=== PATIENT | male | born 1990 | race African-American/Black ===

== ENCOUNTER 2017-06-10 15:14 | Observation (INO) | payer SELFPAY ==
[~2017-06-10] VITALS: Ht 180.3 cm; Wt 64.0 kg
[~2017-06-10 15:14] MED LIST: AMOX600S PO; HYDR7.5S PO
[2017-06-10 15:17] VITALS: BP 143/85; PULSE 67; RESP 18; TEMP 99.3; O2SAT 98
[2017-06-10] MEDS ORDERED: SODIUM CHLOR 0.9% 1000 ML INJ 1,000 ML IV SCH (15:34)
[2017-06-10] MEDS ORDERED: ONDANSETRON HCL 4 MG/2 ML VIAL ONE (15:34)
[2017-06-10] MEDS ORDERED: SODIUM CHLORIDE 0.9% FLUSH 10 ML FLUSH IV FLUSH PRN ×2 (15:45→18:30)
[2017-06-10] MEDS ORDERED: ONDANSETRON HCL 4 MG/2 ML VIAL IVP ONE (15:45)
[2017-06-10] MEDS ORDERED: SODIUM CHLOR 0.9% 1000 ML INJ 1,000 ML IV ONE (15:45)
--- NOTE | 2017-06-10 15:47 | PD ---
HPI Chief Complaint: GI Complaint Time Seen by Provider: 15:24 Travel History International Travel<30 days: No Contact w/Intl Traveler<30days: No Traveled to known affect area: No History of Present Illness HPI Patient is a 26-year-old male who presents the emergency room with complaints of nausea and vomiting. Patient reports that he has not been feeling well since Saturday, reports that he has been feeling nauseous and has been having episodes of vomiting with abdominal cramping. Patient was seen at an outside hospital yesterday and had a full work including a CT of the abdomen and pelvis. Patient reports that he was told that he had a "little infection" to his abdomen and was started on antibiotics. Patient was unsure which antibiotics he was started on, reports that he took a dose today at work and ended up throwing it up. Patient reports that he is not feeling any better, reports that he is still feeling very sick and is unable to keep anything down. Patient denies any recent travels, denies any sick contacts. Reports increased diffuse abdominal cramping. PFSH Past Medical History Asthma: No Autoimmune Disease: No Blood Disorders: No Anxiety: No Depression: No Heart Rhythm Problems: No Cardiovascular Problems: No Chest Pain: No Cystic Fibrosis: No Diminished Hearing: No GERD: Yes Genitourinary: No Headaches: No Hypertension: No Musculoskeletal: No Neurologic: No Psychiatric: Yes (psych evaluation 2002 hx ) Reproductive: No Respiratory: No Seizures: No Sickle Cell Disease: No Sleep Apnea: No ?: Not Past Surgical History Ear Surgery: No Eye Surgery: No Oral Surgery: No Other Surgery: Yes Social History Alcohol Use: Yes (OCC) Tobacco Use: No Substance Use: Yes (MARIJUANA) Allergies-Medications (Allergen,Severity, Reaction): Coded Allergies: No Known Allergies (Verified , 01/26/15) Reported Meds & Prescriptions Reported Meds & Active Scripts Active No Active Prescriptions or Reported Medications Review of Systems General / Constitutional: No: Fever, Chills Eyes: No: Visual changes HENT: No: Headaches Cardiovascular: No: Chest Pain or Discomfort Respiratory: No: Shortness of Breath Gastrointestinal: Positive: Nausea, Vomiting, Abdominal Pain, No: Diarrhea, Constipation Genitourinary: No: Dysuria Musculoskeletal: No: Pain Skin: No Rash Neurologic: No: Weakness Psychiatric: No: Depression Endocrine: No: Polydipsia Hematologic/Lymphatic: No: Easy Bruising Physical Exam Narrative GENERAL: moderate distress SKIN: Focused skin assessment warm/dry. HEAD: Atraumatic. Normocephalic. EYES: Pupils equal and round. No scleral icterus. No injection or drainage. ENT: No nasal bleeding or discharge. Mucous membranes pink and moist. NECK: Trachea midline. No JVD. CARDIOVASCULAR: Regular rate and rhythm. No murmur appreciated. RESPIRATORY: No accessory muscle use. Clear to auscultation. Breath sounds equal bilaterally. GASTROINTESTINAL: Abdomen soft, non-tender, nondistended. Hepatic and splenic margins not palpable. MUSCULOSKELETAL: No obvious deformities. No clubbing. No cyanosis. No edema. NEUROLOGICAL: Awake and alert. No obvious cranial nerve deficits. Motor grossly within normal limits. Normal speech. PSYCHIATRIC: Appropriate mood and affect; insight and judgment normal. Data Data Last Documented VS Vital Signs Date Time Temp Pulse Resp B/P (MAP) Pulse Ox O2 Delivery O2 Flow Rate FiO2 06/10/17 17:43 60 17 152/63 (92) 97 Room Air 06/10/17 15:17 99.3 Orders Orders Ondansetron Inj (Zofran Inj) (06/10/17 15:34) Complete Blood Count With Diff (06/10/17 15:34) Comprehensive Metabolic Panel (06/10/17 15:34) Lipase (06/10/17 15:34) Prothrombin Time / Inr (Pt) (06/10/17 15:34) Act Partial Throm Time (Ptt) (06/10/17 15:34) Urinalysis - C+S If Indicated (06/10/17 15:34) Iv Access Insert/Monitor (06/10/17 15:34) Ecg Monitoring (06/10/17 15:34) Oximetry (06/10/17 15:34) NPO (06/10/17 15:34) Ondansetron Inj (Zofran Inj) (06/10/17 15:45) Sodium Chlor 0.9% 1000 Ml Inj (Ns 1000 M (06/10/17 15:34) Sodium Chloride 0.9% Flush (Ns Flush) (06/10/17 15:45) Sodium Chlor 0.9% 1000 Ml Inj (Ns 1000 M (06/10/17 15:45) Ondansetron Inj (Zofran Inj) (06/10/17 16:15) Chlorpromazine Inj (Thorazine Inj) (06/10/17 17:15) Chlorpromazine Inj (Thorazine Inj) (06/10/17 18:00) Potassium Chloride (Kcl) (06/10/17 18:15) Urine Culture (06/10/17 17:00) Potassium Chlor 20 Meq Premix (Kcl 20 Me (06/10/17 18:30) Admit Order (Ed Use Only) (06/10/17 18:31) Labs Laboratory Tests Test 06/10/17 15:40 06/10/17 15:55 06/10/17 17:00 White Blood Count 7.7 TH/MM3 Red Blood Count 4.76 MIL/MM3 Hemoglobin 15.0 GM/DL Hematocrit 46.1 % Mean Corpuscular Volume 96.8 FL Mean Corpuscular Hemoglobin 31.5 PG Mean Corpuscular Hemoglobin Concent 32.5 % Red Cell Distribution Width 12.1 % Platelet Count 197 TH/MM3 Mean Platelet Volume 9.6 FL Neutrophils (%) (Auto) 59.6 % Lymphocytes (%) (Auto) 29.7 % Monocytes (%) (Auto) 8.4 % Eosinophils (%) (Auto) 0.3 % Basophils (%) (Auto) 2.0 % Neutrophils # (Auto) 4.6 TH/MM3 Lymphocytes # (Auto) 2.3 TH/MM3 Monocytes # (Auto) 0.6 TH/MM3 Eosinophils # (Auto) 0.0 TH/MM3 Basophils # (Auto) 0.2 TH/MM3 CBC Comment DIFF FINAL Differential Comment Blood Urea Nitrogen 28 MG/DL Creatinine 1.50 MG/DL Random Glucose 104 MG/DL Total Protein 8.1 GM/DL Albumin 4.7 GM/DL Calcium Level 9.9 MG/DL Alkaline Phosphatase 55 U/L Aspartate Amino Transf (AST/SGOT) 42 U/L Alanine Aminotransferase (ALT/SGPT) 57 U/L Total Bilirubin 1.0 MG/DL Sodium Level 140 MEQ/L Potassium Level 3.2 MEQ/L Chloride Level 105 MEQ/L Carbon Dioxide Level 27.6 MEQ/L Anion Gap 7 MEQ/L Estimat Glomerular Filtration Rate 69 ML/MIN Lipase 71 U/L Prothrombin Time 12.4 SEC Prothromb Time International Ratio 1.2 RATIO Activated Partial Thromboplast Time 24.3 SEC Urine Color YELLOW Urine Turbidity CLEAR Urine pH 5.5 Urine Specific [place] GREATER/EQUAL 1.030 Urine Protein 100 mg/dL Urine Glucose (UA) NEG mg/dL Urine Ketones 15 mg/dL Urine Occult Blood TRACE Urine Nitrite NEG Urine Bilirubin NEG Urine Urobilinogen 1.0 MG/DL Urine Leukocyte Esterase SMALL Urine RBC 0-3 /hpf Urine WBC 25-49 /hpf Urine Squamous Epithelial Cells 0-5 /hpf Urine Bacteria FEW /hpf Urine Mucus FEW /lpf Microscopic Urinalysis Comment CULTURE INDICATED MDM Medical Decision Making Medical Screen Exam Complete: Yes Emergency Medical Condition: Yes Medical Record Reviewed: Yes Interpretation(s) Vital Signs Date Time Temp Pulse Resp B/P (MAP) Pulse Ox O2 Delivery O2 Flow Rate FiO2 06/10/17 15:17 99.3 67 18 143/85 (104) 98 Differential Diagnosis Gastritis, gastroenteritis, colitis, diverticulitis, electrolyte abnormality Narrative Course Patient is a 26-year-old male who presents the emergency room with complaints of nausea and vomiting which has been ongoing since Saturday. Patient reports that he was seen at an outside hospital yesterday and had a full workup including a CT of his abdomen pelvis which showed "infection." Patient was at work today and reports that he try taking his antibiotics and was unable to keep them down. Patient presents the emergency room with intractable nausea and vomiting with abdominal cramping. During the course of the patients emergency department visit, the patients history, examination, and differential diagnosis were reviewed with the patient. The patient was placed on a cardiac care unit nurse with oximetry and frequent blood pressure monitoring. The patient had an IV access obtained and blood work sent for analysis. The patient was initially provided IVF as well as IV zofran. I did request that his medical records to be obtained from [facility] as he had a full workup including a CT of his abdomen and pelvis yesterday - patient consents to release of his medical records for my review Patient re-evaluated, patient has received 8 mg of Zofran, patient is still bent over in bed with intractable nausea and vomiting, chlorpromazine 25 mg IV ordered for him. The patients laboratory studies were reviewed and remarkable for: CBC & BMP Diagram 06/10/17 15:40 Total Protein 8.1, Albumin 4.7, Calcium Level 9.9, Alkaline Phosphatase 55, Aspartate Amino Transf (AST/SGOT) 42 H, Alanine Aminotransferase (ALT/SGPT) 57, Total Bilirubin 1.0 Patient's potassium is 3.2, oral potassium was ordered, patient unable to tolerate p.o.'s at this time. IV potassium ordered. Patient's BUN 28 creatinine 1.50 UA positive for 25-49 white blood cells, few bacteria, 15 ketones, patient denies any dysuria, urinary urgency or frequency, urine cultures were sent. Patient was given multiple liters of IV fluids as well as multiple antiemetics in the emergency room, patient was noted in the emergency room for 3 hours. Patient unable to tolerate fluids or p.o.'s at this time, patient will require admission to the hospital for fluid hydration. case reviewed with Dr. Barnes who accepts pt to service Diagnosis Primary Impression: Dehydration Additional Impressions: Intractable nausea and vomiting Qualified Codes: R11.2 - Nausea with vomiting, unspecified Hypokalemia Admitting Information Admitting Physician Requests: Observation Scripts No Active Prescriptions or Reported Meds Elizabeth Cline DO Jun 10, 2017 15:47
[2017-06-10] MEDS ORDERED: ONDANSETRON HCL 4 MG/2 ML VIAL IV PUSH ONE (16:15)
[2017-06-10 16:21] LABS: AUTOMATED NEUTROPHIL # 4.6 TH/MM3 (1.8-7.7); BASOPHIL # 0.2 TH/MM3 (0-0.2); EOSINOPHIL % 0.3 % (0.0-4.0); HEMATOCRIT 46.1 % (39.0-51.0); LYMPH % 29.7 % (9.0-44.0); LYMPHOCYTE # 2.3 TH/MM3 (1.0-4.8); MEAN CELL VOLUME 96.8 FL (80.0-100.0); MEAN CORPUSCULAR HEMOGLOBIN 31.5 PG (27.0-34.0); MEAN CORPUSCULAR HGB CONC 32.5 % (32.0-36.0); MEAN PLATELET VOLUME 9.6 FL (7.0-11.0); MONO % 8.4 % (0.0-8.0); MONOCYTE # 0.6 TH/MM3 (0-0.9); NEUT % 59.6 % (16.0-70.0); PLATELET COUNT 197 TH/MM3 (150-450); RED BLOOD COUNT 4.76 MIL/MM3 (4.50-5.90); RED CELL DISTRIBUTION WIDTH 12.1 % (11.6-17.2); WHITE BLOOD COUNT 7.7 TH/MM3 (4.0-11.0)
[2017-06-10 16:41] LABS: CHLORIDE 105 MEQ/L (98-107); SODIUM (NA) 140 MEQ/L (136-145)
[2017-06-10 16:45] VITALS: BP 156/79; PULSE 63; RESP 18; O2SAT 98
[2017-06-10 16:45] LABS: ALBUMIN 4.7 GM/DL (3.4-5.0); BICARBONATE 27.6 MEQ/L (21.0-32.0); CALCIUM 9.9 MG/DL (8.5-10.1)
[2017-06-10 16:46] LABS: INTERNATIONAL NORMALIZED RATIO 1.2 RATIO; PROTHROMBIN TIME - PATIENT 12.4 SEC (9.8-11.6)
[2017-06-10 16:46] LABS: BLOOD UREA NITROGEN 28 MG/DL (7-18); GLUCOSE,RANDOM 104 MG/DL (74-106)
[2017-06-10 16:48] LABS: ALT (GPT) 57 U/L (12-78); AST (GOT) 42 U/L (15-37)
[2017-06-10 16:49] LABS: GLOMERULAR FILTRATION RATE 69 ML/MIN (>89)
[2017-06-10 16:50] LABS: TOTAL PROTEIN 8.1 GM/DL (6.4-8.2)
[2017-06-10 16:51] LABS: ALKALINE PHOSPHATASE 55 U/L (45-117)
[2017-06-10] MEDS ORDERED: chlorproMAZINE INJ 25 MG in SODIUM CHLORID 0.9% 500 ML INJ 500 ML IV ONE (17:15)
[2017-06-10 17:43] VITALS: BP 152/63; PULSE 60; RESP 17; O2SAT 97
[2017-06-10 17:55] LABS: BILIRUBIN, URINE NEG (NEG); BLOOD, URINE TRACE (NEG); GLUCOSE,URINE NEG (NEG); KETONE, URINE 15 mg/dL (NEG); NITRITE,URINE NEG (NEG); PH, URINE 5.5 (5.0-8.5); URINE COLOR YELLOW (YELLW/STRAW); URINE LEUKOCYTE ESTERASE SMALL (NEG)
[2017-06-10 18:12] LABS: BACTERIA, URINE FEW /hpf; MUCUS URINE FEW /lpf (OCC); RBC, URINE 0-3 /hpf (0-3); SQUAMOUS EPITHELIAL CELL URINE 0-5 /hpf (0-5)
[2017-06-10] MEDS ORDERED: POTASSIUM CHLORIDE 10 MEQ CONTROLLED RELEASE TAB PO ONE (18:15)
[2017-06-10] MEDS ORDERED: PROCHLORPERAZINE MALEATE 5 MG TAB PO PRN (18:30)
[2017-06-10] MEDS ORDERED: PROMETHAZINE HCL 25 MG SUPP RECTAL PRN (18:30)
[2017-06-10] MEDS ORDERED: MAGNESIUM HYDROXIDE SUSP 30 ML CUP PO PRN (18:30)
[2017-06-10] MEDS ORDERED: NALOXONE HCL 0.4 MG/ML AMP IV PUSH PRN (18:30)
[2017-06-10] MEDS ORDERED: ACETAMINOPHEN 325 MG TAB PO PRN (18:30)
[2017-06-10] MEDS ORDERED: ONDANSETRON HCL 4 MG/2 ML VIAL IVP PRN (18:30)
[2017-06-10] MEDS: POTASSIUM CHLOR 20 MEQ PREMIX 100 ML IV SCH ×2 (18:44→20:56)
[2017-06-10] MEDS: LACTATED RINGER'S 1000 ML INJ 1,000 ML IV SCH (18:47)
[2017-06-10 19:19] VITALS: BP 112/55; PULSE 64; RESP 18; O2SAT 98
[2017-06-10 20:54] VITALS: BP 148/74; PULSE 62; RESP 18; O2SAT 97
[2017-06-10] MEDS: SODIUM CHLORIDE 0.9% FLUSH 10 ML FLUSH IV FLUSH SCH (21:00)
[2017-06-10 21:17] VITALS: BP 110/58; PULSE 62; RESP 18; TEMP 99.5; O2SAT 96
[2017-06-11] MEDS: LACTATED RINGER'S 1000 ML INJ 1,000 ML IV SCH ×2 (04:23→14:30)
[2017-06-11 06:36] LABS: AUTOMATED NEUTROPHIL # 4.8 TH/MM3 (1.8-7.7); BASOPHIL # 0.1 TH/MM3 (0-0.2); BASOPHIL % 1.3 % (0.0-2.0); EOSINOPHIL % 0.1 % (0.0-4.0); HEMATOCRIT 39.1 % (39.0-51.0); HEMOGLOBIN 13.4 GM/DL (13.0-17.0); LYMPH % 18.2 % (9.0-44.0); LYMPHOCYTE # 1.2 TH/MM3 (1.0-4.8); MEAN CELL VOLUME 96.3 FL (80.0-100.0); MEAN CORPUSCULAR HEMOGLOBIN 32.9 PG (27.0-34.0); MEAN CORPUSCULAR HGB CONC 34.2 % (32.0-36.0); MEAN PLATELET VOLUME 9.5 FL (7.0-11.0); MONO % 8.6 % (0.0-8.0); MONOCYTE # 0.6 TH/MM3 (0-0.9); NEUT % 71.8 % (16.0-70.0); PLATELET COUNT 145 TH/MM3 (150-450); RED BLOOD COUNT 4.06 MIL/MM3 (4.50-5.90); WHITE BLOOD COUNT 6.7 TH/MM3 (4.0-11.0)
[2017-06-11 07:03] LABS: BICARBONATE 27.3 MEQ/L (21.0-32.0); CALCIUM 8.8 MG/DL (8.5-10.1); CREATININE 1.1 MG/DL (0.60-1.30)
[2017-06-11 08:00] VITALS: BP 114/58; PULSE 56; RESP 16; TEMP 99; O2SAT 98
[2017-06-11] MEDS: SODIUM CHLORIDE 0.9% FLUSH 10 ML FLUSH IV FLUSH SCH (08:27)
--- NOTE | 2017-06-11 09:09 | HHI.HP ---
HPI Service [facility] Hospitalists Primary Care Physician No Primary Care Physician Admission Diagnosis Intractable nausea and vomiting, hypokalemia Diagnoses: Chief Complaint: Nausea vomiting Travel History International Travel<30 Days: No Contact w/Intl Traveler <30 Da: No Traveled to Known Affected Are: No History of Present Illness 26-year-old black male being admitted for intractable nausea vomiting. Patient was in his usual state of health until about 3 days ago when he began experiencing nausea followed by nonbloody vomiting. Patient says he just dealt with his symptoms until about 2 days later when he decided to go to [facility] for the persistence of his symptoms. Says he underwent a CT scan was told that he had some colon irritation and was discharged with a possible antibiotic and some Zofran. Says his symptoms improved but then recurred again thus prompting him to come to [place]. Reports hot showers partially relieving his nausea/vomiting. Denies any albert abdominal pain. denies any fevers or chills. Reports seeing now some mild bloody specks in his emesis. Reports having normal bowel movements with no stool changes, no diarrhea, no melena or hematochezia. Denies taking any NSAIDs or Pepto-Bismol. Patient does report smoking marijuana actively, thinks that it helps his nausea. Denies having any abdominal surgeries. Patient denies any dysuria or hematuria or any pyuria. Denies every having any diagnoses of STDs. Social history includes smoking marijuana. Works at a restaurant. Denies any significant family history per patient. Medical history significant for tibia fracture in his left leg playing during sports. In the emergency department the patient was given IV fluids, noted to have elevated creatinine suggesting [place] I. His urinalysis was also suggestive of at least a possible UTI given the white blood cells present. Review of Systems Except as stated in HPI: all other systems reviewed are Neg Past Family Social History Allergies: Coded Allergies: No Known Allergies (Verified , 01/26/15) Physical Exam Vital Signs Vital Signs Date Time Temp Pulse Resp B/P (MAP) Pulse Ox O2 Delivery O2 Flow Rate FiO2 06/10/17 21:25 70 18 97 06/10/17 21:17 99.5 62 18 110/58 (75) 96 06/10/17 20:54 62 18 148/74 (98) 97 Room Air 06/10/17 19:19 64 18 112/55 (74) 98 Room Air 06/10/17 17:43 60 17 152/63 (92) 97 Room Air 06/10/17 16:45 63 18 156/79 (104) 98 Room Air 06/10/17 16:10 Room Air 06/10/17 15:17 99.3 67 18 143/85 (104) 98 Physical Exam VS: afebrile GENERAL: Lying in bed, awake, alert, no acute distress SKIN: Warm and dry. EYES: No scleral icterus. No injection or drainage. ENT: No nasal bleeding or discharge. Mucous membranes pink and moist. CARDIOVASCULAR: Regular rate and rhythm. no murmurs RESPIRATORY: No accessory muscle use. Clear to auscultation. Breath sounds equal bilaterally. GASTROINTESTINAL: Abdomen soft, non-tender, nondistended. Extremities: No clubbing, cyanosis, or edema. No obvious deformities. MUSCULOSKELETAL: adequate muscle bulk and tone for age and habitus NEUROLOGICAL: Awake and alert. No obvious cranial nerve deficits. No facial droop nor slurred speech noted. PSYCHIATRIC: Appropriate mood and affect; insight and judgment normal. Laboratory Laboratory Tests Test 06/10/17 15:40 06/10/17 15:55 06/10/17 17:00 06/11/17 05:40 White Blood Count 7.7 6.7 Red Blood Count 4.76 4.06 Hemoglobin 15.0 13.4 Hematocrit 46.1 39.1 Mean Corpuscular Volume 96.8 96.3 Mean Corpuscular Hemoglobin 31.5 32.9 Mean Corpuscular Hemoglobin Concent 32.5 34.2 Red Cell Distribution Width 12.1 12.0 Platelet Count 197 145 Mean Platelet Volume 9.6 9.5 Neutrophils (%) (Auto) 59.6 71.8 Lymphocytes (%) (Auto) 29.7 18.2 Monocytes (%) (Auto) 8.4 8.6 Eosinophils (%) (Auto) 0.3 0.1 Basophils (%) (Auto) 2.0 1.3 Neutrophils # (Auto) 4.6 4.8 Lymphocytes # (Auto) 2.3 1.2 Monocytes # (Auto) 0.6 0.6 Eosinophils # (Auto) 0.0 0.0 Basophils # (Auto) 0.2 0.1 CBC Comment DIFF FINAL DIFF FINAL Differential Comment Blood Urea Nitrogen 28 19 Creatinine 1.50 1.10 Random Glucose 104 90 Total Protein 8.1 Albumin 4.7 Calcium Level 9.9 8.8 Alkaline Phosphatase 55 Aspartate Amino Transf (AST/SGOT) 42 Alanine Aminotransferase (ALT/SGPT) 57 Total Bilirubin 1.0 Sodium Level 140 143 Potassium Level 3.2 3.7 Chloride Level 105 110 Carbon Dioxide Level 27.6 27.3 Anion Gap 7 6 Estimat Glomerular Filtration Rate 69 99 Lipase 71 Prothrombin Time 12.4 Prothromb Time International Ratio 1.2 Activated Partial Thromboplast Time 24.3 Urine Color YELLOW Urine Turbidity CLEAR Urine pH 5.5 Urine Specific [place] GREATER/EQUAL 1.030 Urine Protein 100 Urine Glucose (UA) NEG Urine Ketones 15 Urine Occult Blood TRACE Urine Nitrite NEG Urine Bilirubin NEG Urine Urobilinogen 1.0 Urine Leukocyte Esterase SMALL Urine RBC 0-3 Urine WBC 25-49 Urine Squamous Epithelial Cells 0-5 Urine Bacteria FEW Urine Mucus FEW Microscopic Urinalysis Comment CULTURE INDICATED Date/Time Source Procedure Growth Status 06/10/17 17:00 Urine Clean Catch Urine Culture Pending Received Result Diagram: 06/11/17 0540 06/11/17 0540 Caprini VTE Risk Assessment Caprini VTE Risk Assessment: No/Low Risk (score <= 1) Caprini Risk Assessment Model Point Value = 1 Point Value = 2 Point Value = 3 Point Value = 5 Age 41-60 Minor surgery BMI > 25 kg/m2 Swollen legs Varicose veins or History of unexplained or recurrent spontaneous Oral contraceptives or hormone replacement Sepsis (< 1 month) Serious lung disease, including pneumonia (< 1 month) Abnormal pulmonary function Acute myocardial infarction Congestive heart failure (< 1 month) History of inflammatory bowel disease Medical patient at bed rest Age 61-74 Arthroscopic surgery Major open surgery (> 45 min) Laparoscopic surgery (> 45 min) Malignancy Confined to bed (> 72 hours) Immobilizing plaster cast Central venous access Age >= 75 History of VTE Family history of VTE Factor V Leiden Prothrombin [id number] Lupus anticoagulant Anticardiolipin antibodies Elevated serum homocysteine Heparin-induced thrombocytopenia Other congenital or acquired thrombophilia Stroke (< 1 month) Elective arthroplasty Hip, pelvis, or leg fracture Acute spinal cord injury (< 1 month) Prophylaxis Regimen Total Risk Factor Score Risk Level Prophylaxis Regimen 0-1 Low Early ambulation 2 Moderate Order ONE of the following: *Sequential Compression Device (SCD) *Heparin 5000 units SQ BID 3-4 Higher Order ONE of the following medications: *Heparin 5000 units SQ TID *Enoxaparin/Lovenox 40 mg SQ daily (WT < 150 kg, CrCl > 30 mL/min) *Enoxaparin/Lovenox 30 mg SQ daily (WT < 150 kg, CrCl > 10-29 mL/min) *Enoxaparin/Lovenox 30 mg SQ BID (WT < 150 kg, CrCl > 30 mL/min) AND/OR *Sequential Compression Device (SCD) 5 or more Highest Order ONE of the following medications: *Heparin 5000 units SQ TID (Preferred with Epidurals) *Enoxaparin/Lovenox 40 mg SQ daily (WT < 150 kg, CrCl > 30 mL/min) *Enoxaparin/Lovenox 30 mg SQ daily (WT < 150 kg, CrCl > 10-29 mL/min) *Enoxaparin/Lovenox 30 mg SQ BID (WT < 150 kg, CrCl > 30 mL/min) AND *Sequential Compression Device (SCD) Assessment and Plan Assessment and Plan 26-year-old black male admitted for intractable nausea vomiting Intractable nausea -At the time of chart review, I did not notice any outside medical records that were and even though they were apparently being requested from the ER. I will reorder these at this time especially of the ER physician note and the CT scan done at the outside hospital. -Zofran, IV fluids -We will obtain gallbladder ultrasound; CMP unremarkable, if all is negative we will attribute it to cyclical vomiting syndrome secondary to marijuana use, patient counseled extensively on this -If refractory by this evening with no other causes found, will make n.p.o. after midnight and consult GI for EGD Acute kidney injury -Secondary to dehydration from above -Improving with IV fluids Microscpic pyuria -Unsure if this is UTI or STD or neither -Asymptomatic nonetheless, will start Cipro, urine culture pending, pending GC chlamydia PCR Addendum: Patient tolerated p.o. intake well. Gallbladder ultrasound is unremarkable. Patient was counseled extensively to refrain from further marijuana use as this would worsen his symptoms. Patient has met maximal benefit from hospitalization and is clinically stable for discharge. Jerod Quinn MD Jun 11, 2017 09:09
--- NOTE | 2017-06-11 09:52 | RADRPT ---
EXAM DATE/TIME: 06/11/2017 09:27 [place] COMPARISON: No previous studies available for comparison. INDICATIONS : Nausea and vomiting. MEDICAL HISTORY : Gastroesophageal reflux disease. SURGICAL HISTORY : Left knee and tibia surgery. ENCOUNTER: Initial ACUITY: 3 days PAIN SCORE: 0/10 LOCATION: Right upper quadrant MEASUREMENTS: LIVER: 14.2 cm length COMMON DUCT: 4 mm RIGHT KIDNEY: 11.2 x 4.3 x 5.4 cm FINDINGS: LIVER: Normal echotexture without focal lesion or ductal dilatation. COMMON DUCT: No intraluminal mass or stone visualized. GALLBLADDER: Contains no stones, demonstrates no wall thickening or pericholecystic fluid. PANCREAS: The visualized portions are within normal limits. RIGHT KIDNEY: No evidence of hydronephrosis, stone, or mass. CONCLUSION: Right upper quadrant abdominal ultrasound within normal limits. Dani Porter MD on June 11, 2017 at 9:48 Board Certified Radiologist. This report was verified electronically.
[2017-06-11 12:00] VITALS: BP 115/98; PULSE 58; RESP 16; TEMP 98.4; O2SAT 96
--- NOTE | 2017-06-11 14:37 | HHI.DCPOC ---
Discharge Care Plan Diagnosis: (1) Cyclical vomiting syndrome (2) Enteritis (3) Acute kidney injury Additional Problems Follow-up with your primary care provider to recheck your liver function test ( INR). Goals to Promote Your Health * To prevent worsening of your condition and complications * To maintain your health at the optimal level Directions to Meet Your Goals Take your medications as prescribed Follow your dietary instruction Follow activity as directed Keep your appointments as scheduled Take your immunizations and boosters as scheduled If your symptoms worsen call your PCP, if no PCP go to Urgent Care Center or Emergency Room Smoking is Dangerous to Your Health. Avoid second hand smoke Call the 24-hour hour crisis hotline for domestic abuse at Jerod Quinn MD Jun 11, 2017 14:37
[2017-06-11] MEDS ORDERED: CIPR500T2 PO (15:01)
== END 2017-06-11 16:51 | disposition home or self-care (01) ==
LOC: PHED 15:14 → PHEDA 18:32 → PH3A 21:17
PROVIDERS: ADMIT Hospitalist; ATTEND Hospitalist
DX: E86.0 Dehydration (principal); G43.A0 Cyclical vomiting, in migraine, not intractable; E87.6 Hypokalemia; N17.9 Acute kidney failure, unspecified; K52.9 Noninfective gastroenteritis and colitis, unspecified; N39.0 Urinary tract infection, site not specified; F12.90 Cannabis use, unspecified, uncomplicated
CPT/HCPCS: 76705; 80048; 80053; 80307; 81001; 83690; 85025; 85610; 85730; 87086; 87491; 87591; 96361; 96365; 96366; 96375; 99285; G0378; J2405; J3230; J3480; J7030; J7120